=== PATIENT | female | born 1980 | race Caucasian/White ===

== ENCOUNTER 2020-10-12 13:50 | Observation (INO) | payer OTHER ==
[~2020-10-12] VITALS: Ht 162 cm; Wt 95.3 kg
[~2020-10-12 13:50] MED LIST: FERR1TAB24 PO; IBUP-2071 PO; PREN1TAB52 PO
[2020-10-12 14:09] VITALS: BP 116/60
[2020-10-12] MEDS ORDERED: INSREG SQ (14:14)
[2020-10-12] MEDS ORDERED: INSNPH SQ (14:16)
[2020-10-12 19:33] LABS: GLUCOMETER DEV NAME(LOC) 4S.; GLUCOSE,POINT OF CARE 136 MG/DL (70-110)
== END 2020-10-12 15:15 | disposition home or self-care (01) ==
LOC: 4S 13:50
PROVIDERS: ADMIT Student in an Organized Health Care Education/Training Program; ATTEND Student in an Organized Health Care Education/Training Program
DX: O24.419 Gestational diabetes mellitus in pregnancy, unspecified control (principal); O09.523 Supervision of elderly multigravida, third trimester; Z3A.35 35 weeks gestation of pregnancy
CPT/HCPCS: 59025; 76811; 99219

== ENCOUNTER 2020-11-01 06:04 | Inpatient (IN) | payer OTHER ==
[~2020-11-01] VITALS: Ht 162.6 cm; Wt 97.1 kg
[~2020-11-01 06:04] MED LIST changes: +INSNPH SQ; +INSREG SQ
[2020-11-02 06:07] VITALS: BP 106/65
[2020-11-02] MEDS ORDERED: RINGERS SOLUTION,LACTATED 1,000 ML IV ONE ×2 (06:30→10:40)
[2020-11-02] MEDS ORDERED: CITRIC ACID/SODIUM CITRATE 30 ML SOLUTION UDCUP PO ONE (06:30)
[2020-11-02] MEDS ORDERED: METOCLOPRAMIDE HCL 5 MG/ML 2 ML VIAL IVP ONE (06:30)
[2020-11-02 06:59] LABS: BASOPHILS % (AUTO) 0.4 % (0.0-2.0); EOSINOPHILS % (AUTO) 1.8 % (1.0-6.0); HEMATOCRIT 30.7 % (36-46); HEMOGLOBIN 10.3 g/dL (12.0-16.0); LYMPHOCYTES # (AUTO) 1.8 K/uL (1.0-4.8); LYMPHOCYTES % (AUTO) 25.6 % (22.0-44.0); MEAN CORPUSCULAR HEMOGLOBIN 27.1 pg (26.0-34.0); MEAN CORPUSCULAR HGB CONC 33.5 G/dL (31.0-37.0); MEAN CORPUSCULAR VOLUME 81 fL (80-100); MONOCYTES # (AUTO) 0.3 K/uL (0.1-1.0); MONOCYTES % (AUTO) 4.8 % (2.0-9.0); NEUTROPHILS # (AUTO) 4.6 K/uL (1.8-7.7); NEUTROPHILS % (AUTO) 67.4 % (40.0-70.0); PLATELET COUNT (AUTO)-OB 220 K/uL (150-450); RED BLOOD CELL COUNT(AUTO) 3.79 MIL/uL (4.00-5.20); RED CELL DISTRIBUTION WIDTH 14.5 % (11.5-14.5)
[2020-11-02] MEDS ORDERED: FOLI-130 PO (07:03)
[2020-11-02] MEDS ORDERED: ASPI-728 PO (07:03)
[2020-11-02] MEDS ORDERED: FentaNYL CITRATE PF 100 MCG/2 ML VIAL ONE (07:34)
[2020-11-02] MEDS ORDERED: MORPHINE SULFATE/PF 1 MG/ML 10 ML AMP ONE (07:34)
[2020-11-02] MEDS ORDERED: MIDAZOLAM HCL 2 MG/2 ML VIAL ONE (07:34)
[2020-11-02] MEDS ORDERED: BUPIVACAINE HCL/DEX-WATER/PF 0.75% 2 ML AMP ITH ONE (07:35)
[2020-11-02] MEDS ORDERED: DEXAMETHASONE SOD PHOS 4 MG/ML VIAL ONE (07:35)
[2020-11-02] MEDS ORDERED: KETOROLAC TROMETHAMINE 30 MG/ML VIAL ONE (07:35)
[2020-11-02] MEDS ORDERED: ONDANSETRON HCL 4 MG/2 ML VIAL ONE (07:35)
[2020-11-02] MEDS ORDERED: ACETAMINOPHEN 1000 MG/ISO-OSM 100 ML IV ONE ×2 (08:15→10:12)
[2020-11-02] MEDS ORDERED: OxyCODONE HCL/ACETAMINOPHEN 5-325 MG TABLET PO PRN ×2 (08:15→09:15)
[2020-11-02] MEDS ORDERED: MEASLES/MUMPS/RUBELLA VACCINE, LIVE 0.5 ML/VIAL SQ ONE (09:15)
[2020-11-02] MEDS ORDERED: LANOLIN 7 GM OINTMENT TP PRN (09:15)
[2020-11-02 10:20] LABS: GLUCOMETER DEV NAME(LOC) 4S.; GLUCOSE,POINT OF CARE 84 MG/DL (70-110)
[2020-11-02] MEDS ORDERED: INFLUENZA VIRUS VACCINE QVS 2020-21 (6MO+)/PF 60 MCG/0.5 ML SYRINGE IM ONE (10:30)
[2020-11-02] MEDS: RINGERS SOLUTION,LACTATED 1,000 ML IV SCH ×2 (10:41→17:22)
[2020-11-02] MEDS: KETOROLAC TROMETHAMINE 30 MG/ML VIAL IVP SCH (17:23)
[2020-11-02 19:57] LABS: GLUCOMETER DEV NAME(LOC) 4S.; GLUCOSE,POINT OF CARE 148 MG/DL (70-110)
[2020-11-02] MEDS ORDERED: OXYGEN THERAPY IH SCH (20:00)
[2020-11-02] MEDS: MetroNIDAZOLE 500 MG TABLET PO SCH (21:30)
[2020-11-02] MEDS: SENNA/DOCUSATE SODIUM 8.6-50 MG TABLET PO SCH (21:30)
[2020-11-02] MEDS: CEPHALEXIN MONOHYDRATE 500 MG CAPSULE PO SCH (21:31)
[2020-11-03] MEDS: KETOROLAC TROMETHAMINE 30 MG/ML VIAL IVP SCH ×2 (00:17→05:43)
[2020-11-03] MEDS: RINGERS SOLUTION,LACTATED 1,000 ML IV SCH (01:48)
[2020-11-03 05:05] LABS: BASOPHILS % (AUTO) 0.3 % (0.0-2.0); EOSINOPHILS % (AUTO) 0.8 % (1.0-6.0); HEMATOCRIT 26.3 % (36-46); HEMOGLOBIN 8.7 g/dL (12.0-16.0); LYMPHOCYTES # (AUTO) 2.3 K/uL (1.0-4.8); LYMPHOCYTES % (AUTO) 25.9 % (22.0-44.0); MEAN CORPUSCULAR HEMOGLOBIN 27.1 pg (26.0-34.0); MEAN CORPUSCULAR VOLUME 82 fL (80-100); MONOCYTES # (AUTO) 0.5 K/uL (0.1-1.0); MONOCYTES % (AUTO) 5.8 % (2.0-9.0); NEUTROPHILS # (AUTO) 5.9 K/uL (1.8-7.7); NEUTROPHILS % (AUTO) 67.2 % (40.0-70.0); PLATELET COUNT (AUTO)-OB 202 K/uL (150-450); RED CELL DISTRIBUTION WIDTH 14.5 % (11.5-14.5)
[2020-11-03] MEDS ORDERED: ONDANSETRON HCL 4 MG/2 ML VIAL IVP ONE (06:43)
[2020-11-03 06:55] LABS: GLUCOMETER DEV NAME(LOC) 4S.; GLUCOSE,POINT OF CARE 82 MG/DL (70-110)
[2020-11-03 08:45] LABS: GLUCOMETER DEV NAME(LOC) 4S.; GLUCOSE,POINT OF CARE 133 MG/DL (70-110)
[2020-11-03] MEDS: CEPHALEXIN MONOHYDRATE 500 MG CAPSULE PO SCH ×2 (09:07→20:50)
[2020-11-03] MEDS: MetroNIDAZOLE 500 MG TABLET PO SCH ×2 (09:07→20:50)
[2020-11-03] MEDS: FERROUS SULFATE 325 MG EC TABLET PO SCH (09:08)
[2020-11-03] MEDS: SENNA/DOCUSATE SODIUM 8.6-50 MG TABLET PO SCH ×2 (09:08→20:50)
[2020-11-03] MEDS: ENOXAPARIN SODIUM 40 MG/0.4 ML PF SYRINGE SQ SCH (10:16)
[2020-11-03] MEDS: OxyCODONE HCL/ACETAMINOPHEN 5-325 MG TABLET PO PRN ×2 (12:54→23:59)
[2020-11-03 13:18] LABS: GLUCOMETER DEV NAME(LOC) 4S.; GLUCOSE,POINT OF CARE 111 MG/DL (70-110)
[2020-11-03 18:45] LABS: GLUCOMETER DEV NAME(LOC) 4S.; GLUCOSE,POINT OF CARE 106 MG/DL (70-110)
[2020-11-04] MEDS: FERROUS SULFATE 325 MG EC TABLET PO SCH (07:41)
[2020-11-04] MEDS: CEPHALEXIN MONOHYDRATE 500 MG CAPSULE PO SCH (09:00)
[2020-11-04] MEDS: MetroNIDAZOLE 500 MG TABLET PO SCH (09:00)
[2020-11-04] MEDS: SENNA/DOCUSATE SODIUM 8.6-50 MG TABLET PO SCH (09:39)
[2020-11-04] MEDS: ENOXAPARIN SODIUM 40 MG/0.4 ML PF SYRINGE SQ SCH (10:46)
[2020-11-04] MEDS ORDERED: PERCT PO (11:22)
[2020-11-04] MEDS ORDERED: IBUP-2070 PO (11:23)
== END 2020-11-04 13:00 | disposition home or self-care (01) | DRG 784 ==
LOC: PREOBSVTOIN 06:04 → 4S 11-02 05:40
PROVIDERS: ADMIT Student in an Organized Health Care Education/Training Program; ATTEND Student in an Organized Health Care Education/Training Program
PROC: 10D00Z1 Extraction of Products of Conception, Low, Open Approach (ICD-10-PCS; principal; 2020-11-02)
PROC: 0UB70ZZ Excision of Bilateral Fallopian Tubes, Open Approach (ICD-10-PCS; 2020-11-02)
PROC: 3E02340 Introduction of Influenza Vaccine into Muscle, Percutaneous Approach (ICD-10-PCS; 2020-11-02)
DX: O34.211 Maternal care for low transverse scar from previous cesarean delivery (principal); D62 Acute posthemorrhagic anemia; O99.214 Obesity complicating childbirth; E66.9 Obesity, unspecified; O24.424 Gestational diabetes mellitus in childbirth, insulin controlled; Z23 Encounter for immunization; Z3A.38 38 weeks gestation of pregnancy; Z37.0 Single live birth
CPT/HCPCS: 86850; 86900; 86901; 87081; 88302; 90686; J0131; J0690; J1100; J1650; J1885; J2250; J2405; J2765; J3010; J3490; J7120

== ENCOUNTER 2020-11-01 12:10 | Observation (INO) | payer OTHER ==
[2020-11-01 14:00] LABS: COVID AG,FIA SOURCE NASOPHARYNGEAL
[2020-11-02] MEDS ORDERED: ASPI-728 PO (07:03)
[2020-11-02] MEDS ORDERED: FOLI-130 PO (07:03)
== END 2020-11-01 12:40 | disposition home or self-care (01) ==
LOC: 4S 12:10
PROVIDERS: ADMIT Student in an Organized Health Care Education/Training Program; ATTEND Student in an Organized Health Care Education/Training Program
DX: O09.523 Supervision of elderly multigravida, third trimester (principal); Z20.822 Contact with and (suspected) exposure to COVID-19; Z3A.38 38 weeks gestation of pregnancy
CPT/HCPCS: 87426; 99219